=== PATIENT | female | born 1985 | race Two or more races ===

== ENCOUNTER 2021-05-27 20:34 | Emergency (ER) | payer MEDICAID, SELFPAY ==
[2021-05-27 20:41] VITALS: BP 115/68; PULSE 86; RESP 18; TEMP 36.8; O2SAT 98; BMI 28.3
--- NOTE | 2021-05-27 21:03 | ED_ITS ---
HPI - Abdominal Pain General: Chief Complaint: Abdominal Pain Stated Complaint: abdominal pain Time Seen by Provider: 05/27/21 20:55 Source: patient and family () Mode of arrival: ambulatory Limitations: no limitations History of Present Illness: Patient is a 35-year-old female who presents to ED today along with her for concerns of abdominal pains. states pain began after eating lunch this afternoon (made a sandwich at her house). They state pain has progressively worsened since onset. She states she feels incredibly nauseous but has not had any episodes of emesis. She has not had any diarrhea. Of note states approximately 2 days ago she complained of sharp pains to her right lower abdomen that seem to subside on their own. She is not running fevers. MD elicited complaint: abdominal pain Pertinent past history: none Onset (ago): hour(s) Pain Consistency: constant Location: Diffuse Severity: severe Quality: cramping and aching Radiation: none Migration to: no migration Relieving factors: nothing Associated Symptoms: Reports nausea; Denies change in bowel habits, chills, constipation, diarrhea, dysuria, fever(s), hematochezia, hematuria, hematemesis, melena and vomiting Review of Systems Const: Denies: fever(s), chills, body aches, fatigue or malaise Card: Denies: chest pain Resp: Denies: dyspnea GI: Reports: abdominal pain and nausea; Denies: vomiting, hematemesis, diarrhea, constipation, change in bowel habits, hematochezia or melena : Denies: flank pain, dysuria or hematuria Musc: Denies: neck pain, back pain, extremity pain or joint pain Skin/Breast: Denies: rash Neuro: Denies: headache(s), numbness in extremities, weakness in extremities, sensory changes or dizziness Physical Exam Const: COMMON NORMALS: no acute distress, average body habitus, patient oriented x3, no limitations, alert and well nourished GENERAL APPEARANCE: cooperative HENMT: COMMON NORMALS: normocephalic and atraumatic HEAD & SCALP: normocephalic and atraumatic Chest: COMMONS NORMALS: normal inspection of the chest and normal palpation of entire chest wall Resp: COMMON NORMALS: normal respiratory effort and clear to auscultation bilaterally AUSCULTATION: clear to auscultation bilaterally Cardio: COMMON NORMALS: regular rate and regular rhythm RATE: regular rate RHYTHM: regular rhythm GI: COMMON NORMALS: Normal to inspection, nondistended, normoactive bowel sounds present, Soft to palpation, No hepatosplenomegaly present and no masses INSPECTION: Yes normal to inspection AUSCULTATION: Yes normoactive bowel sounds PALPATION: Yes Soft to palpation, Yes Tenderness to palpation present (GI) (diffusely but moreso throughout R abdomen ) and Yes No hepatosplenomegaly present : COMMON NORMALS: Yes no CVA tenderness BLADDER/KIDNEY EXAM: Yes no CVA tenderness Back/Pelvis: COMMON NORMALS: no CVA tenderness Extremity: COMMON NORMALS: normal to inspection Neuro: BELINDA COMA SCALE: document GCS findings [place] coma scale eye openi ng: Spontaneous [place] coma scale verbal response: Orientated [place] coma scale motor response: Obey commands [place]inda coma scale total score: 15 COMMON NORMALS: patient oriented x3, moves all extremities, no focal motor deficits, no sensory deficits noted and gait normal SENSORIUM/ORIENTATION: Yes alert Skin: COMMON NORMALS: no rashes or lesions noted GENERAL SKIN EXAM: no rashes or lesions noted Course Vital Signs: Vital signs: Vital Signs Temperature 98.2 F 05/27/21 20:41 Pulse Rate 71 05/27/21 22:53 Respiratory Rate 18 05/27/21 22:53 Blood Pressure 126/66 05/27/21 22:53 Pulse Oximetry 97 05/27/21 22:53 MDM - Abdominal Pain Medical Decision Making Patient feels much better on re-examination. Her vital signs are perfect. Bl ood work overall is unremarkable. CT scan showing findings possibly reflective of viral gastroenteritis. After speaking to patient again she does tell me she ate a piece of [employer] yesterday that smelled funny. Recommend conservative treatment at home at this time. Return to ED precautions verbally given to patient and her who voiced understanding. Lab Data : 05/27/21 21:26 05/27/21 21:26 Labs/Radiology: Radiology Impressions Abdomen/Pelvis CT 05/27/21 21:14 IMPRESSION: 1. Fluid within the small bowel and colon without evidence of bowel wall thickening. This may reflect viral gastroenteritis in the appropriate clinical situation. 2. Dominant follicles in both ovaries. 3. Incidental/nonacute findings are listed in the report. COMMENTS: Consistent with the [employer]'s Incidental Findings Committee white paper (J Am Therese Radiol 2018): Any incidental renal lesion less than 1 cm or classified as too small to characterize, or any incidental cystic renal lesion characterized as simple-appearing, is likely benign. No follow-up imaging is recommended for these lesions per consensus recommendations based on imaging criteria. ADDENDUM: 05/27/21 [id number] Please note the correction to the original report: Dominant follicle in the right ovary measuring 1.4 x 1.4 cm (series 2, image 65). Laboratory Results WBC 10.4 10^3/uL (4.0-10.0) H 05/27/21 21: RBC 4.43 10^6/uL (4.1-5.3) 05/27/21 21: Hgb 13.0 g/dL (11.5-15.3) 05/27/21 21: Hct 38.1 % (37.0-47.0) 05/27/21 21: MCV 86.0 fl (81-99) 05/27/21 21: MCH 29.3 pg (28.0-34.0) 05/27/21 21: MCHC 34.1 g/dL (30.0-36.0) 05/27/21 21: RDW 17.6 % (12.1-15.1) H 05/27/21 21: Plt Count 264 10^3/cmm (130-400) 05/27/21 21: MPV 10.3 fL (7.4-10.4) 05/27/21 21: Neut % (Auto) 87.7 % 05/27/21 21: Lymph % (Auto) 6.6 % 05/27/21 21: Door % (Auto) 4.2 % 05/27/21 21: Eos % (Auto) 0.8 % 05/27/21 21: Baso % (Auto) 0.3 % 05/27/21: Neut # (Auto) 9.13 10^3/uL (1.8-7.7) H 05/27/21 21: Lymph # (Auto) 0.7 10^3/uL (0.8-4.8) L 05/27/21 21:26 [place] # (Auto) 0.4 10^3/uL (0.2-0.9) 05/27/21 21:26 Eos # (Auto) 0.1 10^3/uL (0.0-0.8) 05/27/21 21:26 Baso # (Auto) 0.0 10^3/uL (0.0-0.1) 05/27/21 21:26 Nucleated RBC % (auto) 0 % 05/27/21 21: Nucleated RBCs # 0.0 /100WBC 05/27/21 21:26 Sodium 136 mmol/L (136-145) 05/27/21 21: Potassium 3.8 mmol/L (3.5-5.1) 05/27/21 21: Chloride 103 mmol/L (98-107) 05/27/21 21: Carbon Dioxide 22 mmol/L (22-29) 05/27/21: Anion Gap 14.8 (5-19) 05/27/21 21: BUN 17 mg/dL (6-20) 05/27/21 21:26 Creatinine 0.5 mg/dL (0.5-0.9) 05/27/21 21: GFR Calculation 139.6 mL/min (90-130) H 05/27/21 21: Glucose 109 mg/dL (65-115) 05/27/21 21: Calculated Osmolality 284 mOsm/kg (285-295) L 05/27/21: Calcium 9.4 mg/dL (8.5-10.5) 05/27/21: Total Bilirubin 0.5 mg/dL (0.15-1.2) 05/27/21 21: AST 13 U/L (0-32) 05/27/21 21: ALT 10 U/L (0-33) 05/27/21 21: Alkaline Phosphatase 58 IU/L (35-105) 05/27/21 21: Total Protein 7.2 g/dL (6.6-8.7) 05/27/21 21: Albumin 4.3 g/dL (3.5-5.2) 05/27/21: Globulin 2.9 g/dL (1.3-4.6) 05/27/21:26 Lipase 28 U/L (13-60) 05/27/21 21:26 Urine Color Yellow (Yellow) 05/27/21 21: Urine Appearance Clear (CLEAR) 05/27/21 21: Urine pH 5 (5-7) 05/27/21 21: Ur Specific [place] 1.020 (1.005-1.030) 05/27/21 21:27 Urine Protein Neg (Negative) 05/27/21 21: Urine Glucose (UA) Norm (Normal) 05/27/21 21: Urine Ketones 1+ (Negative) H 05/27/21 21: Urine Blood 2+ (Negative) H 05/27/21 21: Urine Nitrate Negative (Negative) 05/27/21 21: Urine Bilirubin 1+ (Negative) H 05/27/21 21: Urine Urobilinogen Norm mg/dL (Negative) 05/27/21 21: Ur Leukocyte Esterase Negative (Negative) 05/27/21 21: Urine RBC 0-4 /hpf (0-2) H 05/27/21 21:27 Urine WBC 0-4 /hpf (0-5) H 05/27/21 21:27 Ur Squamous Epith Cells 5-10 /hpf (0-5) H 05/27/21 21: Amorphous Sediment Trace /hpf 05/27/21 21: Urine Bacteria 1+ /hpf (NONE) H 05/27/21 21: Urine Mucus 2+ /hpf 05/27/21 21:27 Urine HCG, Qual Negative (Negative) 05/27/21 21:27 Discharge Plan Discharge Patient Disposition: Home Clinical Impression: Viral gastroenteritis Condition: Stable Discharge Orders: Discharge ED (Routine); Ordered 05/27/21 Ordered By: Ping Bhardwaj Patient Instructions: Gastroenteritis (ED) Coding Level of Care Code ED Dispersion Mixer for Trena Fwd Exam Comprehensive
--- NOTE | 2021-05-27 21:14 | CTR_ITS ---
PROCEDURE INFORMATION: Exam: CT Abdomen And Pelvis With Contrast Exam date and time: 05/27/2021 9:55 PM Age: 35 years old Clinical indication: Abdominal pain; Prior surgery; Surgery type: Csection; Patient HX: C/O rlq pain with nausea. ; Additional info: R abdominal pain, nausea TECHNIQUE: Imaging protocol: Computed tomography of the abdomen and pelvis with contrast. Sagittal and coronal reformatted images were created and reviewed. Radiation optimization: All CT scans at this facility use at least one of these dose optimization techniques: automated exposure control; mA and/or kV adjustment per patient size (includes targeted exams where dose is matched to clinical indication); or iterative reconstruction. Contrast material: OMNI 300; Contrast volume: 95 ml; Contrast route: INTRAVENOUS (IV); COMPARISON: No relevant prior studies available. RADIATION DOSE METRICS: Total DLP (mGy-cm): 1392.8 FINDINGS: Lungs: Visualized lungs are clear. Pleural spaces: No pleural effusion. Heart: Visualized portions of the heart are unremarkable. Liver: The liver is unremarkable. Gallbladder and bile ducts: The gallbladder is unremarkable. No biliary ductal dilatation. Pancreas: The pancreas is unremarkable. No pancreatic ductal dilatation. Spleen: The spleen is unremarkable. Small splenule in the left upper quadrant. Adrenal glands: The right and left adrenal glands are unremarkable. Kidneys and ureters: The right kidney is unremarkable. Simple cyst in the left kidney measuring 3.4 cm. The right and left ureters are unremarkable. Stomach and bowel: Fluid within the small bowel and colon without evidence of bowel wall thickening. Appendix: The appendix is visualized and is unremarkable. No findings to suggest acute appendicitis. Intraperitoneal space: No free intraperitoneal air. No ascites. No loculated fluid collections to suggest an abscess. Vasculature: .No evidence for aortic aneurysm or aortic dissection. Hepatic veins, portal veins, splenic vein, and SMV are patent. Lymph nodes: No lymphadenopathy. Urinary bladder: The bladder is incompletely filled, which can limit evaluation. No focal abnormality in the bladder however. Reproductive: Dominant follicle in the right ovary. Dominant follicle in the left ovary measuring 1.5 x 1.2 cm (series 2, image 63). The uterus is unremarkable. Bones/joints: No acute fracture. Soft tissues: The extra-abdominal soft tissues are unremarkable. Other findings: Measurement 1.4 x 1.4 cm (series 2, image 65). CT/CT abdomen pelvis w con* [id number] IMPRESSION: 1. Fluid within the small bowel and colon without evidence of bowel wall thickening. This may reflect viral gastroenteritis in the appropriate clinical situation. 2. Dominant follicles in both ovaries. 3. Incidental/nonacute findings are listed in the report. COMMENTS: Consistent with the [employer]'s Incidental Findings Committee white paper (J Am Therese Radiol 2018): Any incidental renal lesion less than 1 cm or classified as too small to characterize, or any incidental cystic renal lesion characterized as simple-appearing, is likely benign. No follow-up imaging is recommended for these lesions per consensus recommendations based on imaging criteria.
[2021-05-27 21:36] LABS: Basophils % 0.3 %; Eosinophils # 0.1 10^3/uL (0.0-0.8); Eosinophils % 0.8 %; Hematocrit 38.1 % (37.0-47.0); Lymphocytes # 0.7 10^3/uL (0.8-4.8); Lymphocytes % 6.6 %; Mean Corpuscular HGB Conc 34.1 g/dL (30.0-36.0); Mean Corpuscular Hemoglobin 29.3 pg (28.0-34.0); Mean Platelet Volume 10.3 fL (7.4-10.4); Monocytes # 0.4 10^3/uL (0.2-0.9); Monocytes % 4.2 %; Neutrophils # 9.13 10^3/uL (1.8-7.7); Neutrophils % 87.7 %; Nucleated Red Blood Cells % 0 %; Platelet Count 264 10^3/cmm (130-400); Red Blood Count 4.43 10^6/uL (4.1-5.3); Red Cell Distribution Width 17.6 % (12.1-15.1); White Blood Count 10.4 10^3/uL (4.0-10.0)
[2021-05-27] MEDS: sodium chloride 0.9% 1,000 ML 999 ML IV (21:47)
[2021-05-27] MEDS: ondansetron 2 mg/ML SDV 2 mL 4 MG IVP (21:47)
[2021-05-27] MEDS: morphine 4 mg/mL SDV 1 mL IVP (21:47)
[2021-05-27] MEDS: iohexol 300 mg/mL 100 mL Btl IV (21:53)
[2021-05-27 21:56] LABS: Alanine Aminotransferase 10 U/L (0-33); Albumin Level 4.3 g/dL (3.5-5.2); Alkaline Phosphatase 58 IU/L (35-105); Anion Gap 14.8 (5-19); Aspartate Amino Transferase 13 U/L (0-32); Blood Urea Nitrogen 17 mg/dL (6-20); Calcium 9.4 mg/dL (8.5-10.5); Carbon Dioxide 22 mmol/L (22-29); Chloride 103 mmol/L (98-107); Globulin 2.9 g/dL (1.3-4.6); Glomerular Filtration Rate 139.6 mL/min (90-130); Glucose 109 mg/dL (65-115); Lipase 28 U/L (13-60); Osmolality Calculated 284 mOsm/kg (285-295); Potassium 3.8 mmol/L (3.5-5.1); Sodium 136 mmol/L (136-145); Total Bilirubin 0.5 mg/dL (0.15-1.2); Total Protein 7.2 g/dL (6.6-8.7)
[2021-05-27 22:02] LABS: Blood Urine 2+ (Negative); Glucose Urine UA Norm (Normal); Ketones Urine 1+ (Negative); Nitrate Urine Negative (Negative); Protein Urine Neg (Negative); Urine Appearance Clear (CLEAR); Urine Color Yellow (Yellow); pH Urine 5 (5-7)
[2021-05-27 22:03] LABS: Add Urine Microscopic? YES; Bacteria Urine 1+ /hpf; Bilirubin Urine 1+ (Negative); Leukocyte Esterase Urine Negative (Negative); RBC Urine 0-4 /hpf (0-2); Urobilinogen Urine Norm (Negative); WBC Urine 0-4 /hpf (0-5)
[2021-05-27 22:04] LABS: Add Urine Culture? No; Amorphous Sediment Urine TRACE /hpf; Mucus Urine 2+ /hpf
[2021-05-27 22:53] VITALS: BP 126/66; PULSE 71; RESP 18; O2SAT 97
[2021-05-27 23:54] VITALS: BP 126/66; PULSE 71; RESP 18; O2SAT 97
== END 2021-05-27 23:56 | disposition home or self-care (01) ==
PROVIDERS: Emergency Medicine; Emergency Provider Physician Assistant
DX: A08.4 Viral intestinal infection, unspecified (principal)
CPT/HCPCS: 74177; 80053; 81001; 81025; 83690; 85025; 96361; 96374; 96375; 99283; J2270; J2405; J7030; Q9967

== ENCOUNTER → 2022-07-27 08:54 | Outpatient (BNVA) | payer MEDICAID, SELFPAY | PROVIDERS: Visit Provider Obstetrics & Gynecology | DX: N64.4 Mastodynia (principal); N92.0 Excessive and frequent menstruation with regular cycle | CPT/HCPCS: 83001; 84146; 84443; 85025 ==

== ENCOUNTER → 2022-08-13 10:18 | Outpatient (BNVA) | payer MEDICAID, SELFPAY | PROVIDERS: Visit Provider Obstetrics & Gynecology | DX: R10.2 Pelvic and perineal pain (principal); N85.2 Hypertrophy of uterus | CPT/HCPCS: 76830 ==

== ENCOUNTER 2022-09-07 11:37 | Outpatient (CLI) | payer MEDICAID, SELFPAY ==
--- NOTE | 2022-09-07 11:48 | MM_ITS ---
WS: [id number] BILATERAL 3D TOMOSYNTHESIS DIGITAL DIAGNOSTIC MAMMOGRAPHY WITH CAD CLINICAL INFORMATION: LT BR PAIN HISTORY: LEFT breast pain and soreness COMPARISON: Baseline TECHNIQUE: Bilateral CC, MLO, and ML views. FINDINGS: Scattered fibroglandular densities bilaterally. No suspicious focal mass, asymmetry, calcifications, or architectural distortion. No evidence of andrzej gnancy. Ultrasound of the painful areas described below. ULTRASOUND BREAST BILATERAL TECHNIQUE: Ultrasound bilateral breast focused area of concern. CLINICAL INFORMATION: LT BR PAIN FINDINGS: RIGHT BREAST: Ultrasound RIGHT breast at the 12, 3 6 and 9:00 positions. Normal underlying parenchyma l tissue. No suspicious cystic or solid lesions. A few incidental dilated ducts and tiny lesions like ly cysts measuring 2 to 3 mm. No suspicious lesions to target for biopsy. LEFT BREAST: Ultrasound LEFT breast 4 quadrants. No suspicious lesions in the LEFT breast. Normal und erlying parenchymal tissue. No suspicious lesions to target for biopsy. Tiny hypoechoic lesion at the 6:00 position likely a tiny incidental cyst . MM/[place] [id number] BI-RADS: 2-Benign FOLLOW UP: Age 39 Recommend annual screening mammography age 40.
== END 2022-09-07 11:38 | disposition home or self-care (01) ==
LOC: RAD 11:41
PROVIDERS: PCP Obstetrics & Gynecology; Visit Provider Obstetrics & Gynecology
DX: N64.4 Mastodynia (principal)
CPT/HCPCS: 76642; 77062; 83001; 84146; 84443; 85025; G0279

== ENCOUNTER 2022-10-01 14:15 | Outpatient (CLI) | payer MEDICAID, SELFPAY ==
--- NOTE | 2022-10-01 14:23 | XR_ITS ---
WS: [id number] XR lumbar spine 2-3V* [id number] REASON FOR EXAM: lower back pain FINDINGS: Mild rotatory scoliosis convex right. Straightening of the normal lordosis of the lumbar spine. No significant vertebral body abnormality is noted. Intervertebral disc spaces are intact and well preserved. No spondylolysis or significant spondylolisthesis. IMPRESSION: Altered lumbar curvatures as above.
== END 2022-10-01 14:16 | disposition home or self-care (01) ==
LOC: RAD 14:19
PROVIDERS: PCP Obstetrics & Gynecology; Visit Provider Family Medicine
DX: M54.50 Low back pain, unspecified (principal); G89.29 Other chronic pain; M54.9 Dorsalgia, unspecified
CPT/HCPCS: 72100

== ENCOUNTER 2022-10-21 10:49 | Outpatient (CLI) | payer MEDICAID, SELFPAY ==
--- NOTE | 2022-10-21 11:00 | FL_ITS ---
WS: [id number] HYSTEROSALPINGOGRAM The cervical opening was cannulated by the unit receptionist. Then under fluoroscopic guidance, water-solu ble contrast was injected in a retrograde fashion. CLINICAL INFORMATION: N97.9 - Female infertility, unspecified. History of tubal ligation with reversa l COMPARISON: None. FINDINGS: The uterus fills normally, with no evidence of contour abnormality or filling defect. Partial filling of the RIGHT fallopian tube with no evidence of spillage. No significant filling of t he LEFT fallopian tube or spillage. FLUOROSCOPY TIME: 1min [id number] minutes. # of spot films: 2. IMPRESSION: No evidence of fallopian tube spillage bilaterally.
== END 2022-10-21 10:50 | disposition home or self-care (01) ==
PROVIDERS: PCP Obstetrics & Gynecology; Visit Provider Obstetrics & Gynecology
DX: N97.9 Female infertility, unspecified (principal)
CPT/HCPCS: 74740; Q9966

== ENCOUNTER 2022-12-01 07:53 | Emergency (ER) | payer MEDICAID, SELFPAY ==
[2022-12-01 07:58] VITALS: BP 137/87; PULSE 102; RESP 22; TEMP 36.6; O2SAT 100; BMI 31.4
--- NOTE | 2022-12-01 08:03 | ED_ITS ---
HPI - Abdominal Pain General: Chief Complaint: Nausea/Vomiting/Diarrhea Stated Complaint: abd pain Time Seen by Provider: 12/01/22 07:57 Source: patient Mode of arrival: ambulatory History of Present Illness: 37-year-old female presents emergency room complaining of abdominal pain localizes pain to the right upper quadrant worse after she eats specifically states after she ate spaghetti worsened. She has had some loose stools. She denies any dysuria urgency or frequency, no hematuria. No fever sweats or chills. She has previously had a no other abdominal surgeries. No history of renal stones MD elicited complaint: abdominal pain Onset (ago): day(s) Pain Consistency: intermittent Location: RUQ Severity: moderate Quality: cramping Radiation: back Exacerbating factors: eating Relieving factors: nothing Associated Symptoms: Reports bloating, GI cramping, nausea, poor appetite and vomiting; Denies anorexia, belching, change in bowel habits, change in stool character, chills, coffee ground emesis, constipation, diarrhea, dyspepsia, dysuria, excessive flatus, fever(s), heartburn, hematochezia, hematuria, hematemesis, fecal incontinence, loose stools, melena and syncope Review of Systems Const: Denies: fever(s), chills, fatigue or malaise Card: Denies: chest pain or syncope Resp: Denies: dyspnea GI: Reports: abdominal pain, nausea, vomiting, bloating and GI cramping; Denies: hematemesis, coffee ground emesis, heartburn, diarrhea, constipation, belching, excessive flatus, fecal incontinence, change in bowel habits, change in stool character, hematochezia or melena : Denies: flank pain, dysuria, urinary frequency, urinary urgency or hematuria Musc: Reports: back pain; Denies: neck pain Skin/Breast: Denies: rash PFSH ED PFSH: Surgical History H/O section x3 No pertinent past surgical history Family History Denies family history of Colon cancer Ovarian cancer Diabetes Heart disease Hyperlipidemia Breast cancer Hypertension Uterine cancer Thyroid condition Stroke Social History Smoking and tobacco status: current every day smoker cigarettes Packs smoked per day: 0.5 Alcohol intake: never Substance/Drug Use: never Physical Exam Const: GENERAL APPEARANCE: cooperative and comfortable ORIENTATION/CONSCIOUSNESS: Yes awake, Yes oriented to person, Yes oriented to place and Yes oriented to time HENMT: COMMON NORMALS: normocephalic, atraumatic and hearing grossly normal bilaterally HEAD & SCALP: normocephalic and atraumatic Resp: COMMON NORMALS: normal respiratory effort, No retractions, No use of accessory muscles and clear to auscultation bilaterally AUSCULTATION: clear to auscultation bilaterally Cardio: COMMON NORMALS: regular rate, regular rhythm and No murmurs present (Cardio) RATE: regular rate RHYTHM: regular rhythm GI: COMMON NORMALS: No hepatosplenomegaly present AUSCULTATION: Yes normoactive bowel sounds PALPATION: Yes Tenderness to palpation present (GI) Details: RUQ, No Guarding due to palpation present (GI) and Yes No hepato splenomegaly present Extremity: COMMON NORMALS: normal to inspection, capillary refill normal, no clubbing, cyanosis or edema, no calf tenderness and no pedal edema Neuro: SENSORIUM/ORIENTATION: Yes oriented to person, Yes oriented to place and Yes oriented to time Skin: COMMON NORMALS: no rashes or lesions noted GENERAL SKIN EXAM: no rashes or lesions noted Course Vital Signs: Vital signs: Vital Signs Temperature 97.8 F 12/01/22 07:58 Pulse Rate 102 H 12/01/22 07:58 Respiratory Rate 22 H 12/01/22 07:58 Blood Pressure 137/87 12/01/22 07:58 Pulse Oximetry 100 12/01/22 07:58 MDM - Abdominal Pain Medical Decision Making Labs and imaging reviewed. She does have some leukocytosis gallbladder ultrasound and CT are negative. No sign of acute cystitis her urine shows more squamous cells and white cells. She is improved after IV fluids discharged home on clear liquid diet antiemetics as needed follow-up as needed. Clear liquid diet 24 to 48 hours Differential Diagnosis Likely abdominal pain, acute appendicitis, calculus of kidney, gastroenteritis, pancreatitis and small bowel obstruction Medical Records I reviewed the patient's medical records. Lab Data I reviewed the patient's lab results. 12/01/22 08:12 12/01/22 08:12 Labs/Radiology: Laboratory Results WBC 15.62 10^3/uL (3.29-11.43) H 12/01/22 08:12 RBC 4.75 10^6/uL (3.85-5.65) 12/01/22 08:12 Hgb 13.50 g/dL (11.27-16.99) 12/01/22 08:12 Hct 41.0 % (36-47) 12/01/22 08:12 MCV 86.3 fl (85-98) 12/01/22 08:12 MCH 28.4 pg (27-33) 12/01/22 08:12 MCHC 32.9 g/dL (30-55) 12/01/22 08:12 RDW 14.4 % (12.1-15.1) 12/01/22 08:12 Plt Count 360 10^3/cmm (157-399) 12/01/22 08:12 MPV 10.0 fL (7.4-10.4) 12/01/22 08:12 Neut % (Auto) 80.5 % 12/01/22 08:12 Lymph % (Auto) 11.4 % 12/01/22 08:12 [place] % (Auto) 6.0 % 12/01/22 08:12 Eos % (Auto) 1.0 % 12/01/22 08:12 Baso % (Auto) 0.3 % 12/01/22 08:12 Neut # (Auto) 12.57 10^3/uL (1.8-7.7) H 12/01/22 08:12 Lymph # (Auto) 1.8 10^3/uL (0.8-4.8) 12/01/22 08:12 [place] # (Auto) 0.9 10^3/uL (0.2-0.9) 12/01/22 08:12 Eos # (Auto) 0.2 10^3/uL (0.0-0.8) 12/01/22 08:12 Baso # (Auto) 0.1 10^3/uL (0.0-0.1) 12/01/22 08:12 Nucleated RBC % (auto) 0 % 12/01/22 08:12 Nucleated RBCs # 0.0 /100WBC 12/01/22 08:12 Sodium 140 mmol/L (136-145) 12/01/22 08:12 Potassium 3.8 mmol/L (3.5-5.1) 12/01/22 08:12 Chloride 104 mmol/L (98-107) 12/01/22 08:12 Carbon Dioxide 24 mmol/L (22-29) 12/01/22 08:12 Anion Gap 15.8 (5-19) 12/01/22 08:12 BUN 15 mg/dL (6-20) 12/01/22 08:12 Creatinine 0.7 mg/dL (0.5-0.9) 12/01/22 08:12 GFR Calculation 93.6 mL/min (90-130) 12/01/22 08:12 Glucose 141 mg/dL (65-115) H 12/01/22 08:12 Calculated Osmolality 293 mOsm/kg (285-295) 12/01/22 08:12 Calcium 9.2 mg/dL (8.5-10.5) 12/01/22 08:12 Total Bilirubin 0.6 mg/dL (0.15-1.2) 12/01/22 08:12 AST 12 U/L (0-32) 12/01/22 08:12 ALT 11 U/L (0-33) 12/01/22 08:12 Alkaline Phosphatase 72 U/L (35-105) 12/01/22 08:12 Total Protein 7.5 g/dL (6.6-8.7) 12/01/22 08:12 Albumin 4.4 g/dL (3.5-5.2) 12/01/22 08:12 Globulin 3.1 g/dL (1.3-4.6) 12/01/22 08:12 Lipase 33 U/L (13-60) 12/01/22 08:12 HCG, Qual Negative (Negative) 12/01/22 08:12 Urine Color Yellow (Yellow) 12/01/22 08:25 Urine Appearance Cloudy (CLEAR) A 12/01/22 08:25 Urine pH 7 (5-7) 12/01/22 08:25 Ur Specific [place] 1.010 (1.005-1.030) 12/01/22 08:25 Urine Protein Trace (Negative) 12/01/22 08:25 Urine Glucose (UA) Norm (Normal) 12/01/22 08:25 Urine Ketones 1+ (Negative) H 12/01/22 08:25 Urine Blood 3+ (Negative) H 12/01/22 08:25 Urine Nitrate Negative (Negative) 12/01/22 08:25 Urine Bilirubin 1+ (Negative) H 12/01/22 08:25 Urine Urobilinogen 4 mg/dL (Negative) H 12/01/22 08:25 Ur Leukocyte Esterase Trace (Negative) H 12/01/22 08:25 Urine RBC 0-4 /hpf (0-2) H 12/01/22 08:25 Urine WBC 5-10 /hpf (0-5) H 12/01/22 08:25 Ur Squamous Epith Cells 10-15 /hpf (0-5) H 12/01/22 08:25 Amorphous Sediment Not Reportable 12/01/22 08:25 Urine Bacteria 3+ /hpf (NONE) H 12/01/22 08:25 Urine Mucus 2+ /hpf 12/01/22 08:25 All radiology interpretation(s) finalized by discharge Discharge Plan Discharge Patient Disposition: Home Clinical Impression: Gastroenteritis Condition: Stable Prescriptions: New ondansetron HCl 4 mg tablet 4 mg PO Q6H PRN (Reason: nausea and vomiting) Qty: 20 0RF No Action ibuprofen 800 mg tablet 800 mg PO TID Qty: 90 3RF Discharge Orders: Discharge ED (Routine); Ordered 12/01/22 Ordered By: Dante Olivarez Referrals: Derick Pompa MD [Primary Care Provider] - Discharge Diet: Clear Liquid Discharge Activity: Increase activity as tolerated Patient Instructions: Gastroenteritis (ED), Opioid Safety, Pain Management Activity Restrictions/Additional Instructions: Clear liquid diet 24 to 48 hours advance as tolerated Stand Alone Forms: Work/School Release Coding Level of Care Code ED Assistant Women'S Rowing Coach for Trena Roy
--- NOTE | 2022-12-01 08:14 | US_ITS ---
WS: [email or web address] RIGHT UPPER QUADRANT ULTRASOUND HISTORY: RUQ abd pain COMPARISON: None available. Liver: 16.8 cm in length. Normal size liver and echogenicity. No bile duct dilatation or mass. Portal Vein: Normal hepatopetal flow with monophasic waveform. Gallbladder: Normally distended gallbladder with no stones or wall thickening. CBD: 0.3 cm Pancreas: Normal size and echogenicity. Right kidney: 11.2 cm in length. Normal size and echogenicity. No hydronephrosis or mass. Aorta and IVC: Unremarkable abdominal aorta and IVC. No ascites. IMPRESSION: Normal RIGHT upper quadrant ultrasound.
[2022-12-01] MEDS: ondansetron 2 mg/ML SDV 2 mL 4 MG IVP (08:20)
[2022-12-01 08:21] LABS: Basophils # 0.1 10^3/uL (0.0-0.1); Basophils % 0.3 %; Eosinophils # 0.2 10^3/uL (0.0-0.8); Lymphocytes # 1.8 10^3/uL (0.8-4.8); Lymphocytes % 11.4 %; Mean Corpuscular HGB Conc 32.9 g/dL (30-55); Mean Corpuscular Hemoglobin 28.4 pg (27-33); Mean Corpuscular Volume 86.3 fl (85-98); Monocytes # 0.9 10^3/uL (0.2-0.9); Neutrophils # 12.57 10^3/uL (1.8-7.7); Neutrophils % 80.5 %; Nucleated Red Blood Cells % 0 %; Platelet Count 360 10^3/cmm (157-399); Red Blood Count 4.75 10^6/uL (3.85-5.65); Red Cell Distribution Width 14.4 % (12.1-15.1); White Blood Count 15.62 10^3/uL (3.29-11.43)
[2022-12-01] MEDS: sodium chloride 0.9% 1,000 ML 999 ML IV (08:21)
[2022-12-01 08:37] LABS: HCG, Serum Qual Negative (Negative)
[2022-12-01 08:39] LABS: Alanine Aminotransferase 11 U/L (0-33); Albumin Level 4.4 g/dL (3.5-5.2); Alkaline Phosphatase 72 U/L (35-105); Anion Gap 15.8 (5-19); Aspartate Amino Transferase 12 U/L (0-32); Blood Urea Nitrogen 15 mg/dL (6-20); Calcium 9.2 mg/dL (8.5-10.5); Carbon Dioxide 24 mmol/L (22-29); Chloride 104 mmol/L (98-107); Globulin 3.1 g/dL (1.3-4.6); Glomerular Filtration Rate 93.6 mL/min (90-130); Glucose 141 mg/dL (65-115); Osmolality Calculated 293 mOsm/kg (285-295); Potassium 3.8 mmol/L (3.5-5.1); Sodium 140 mmol/L (136-145); Total Bilirubin 0.6 mg/dL (0.15-1.2); Total Protein 7.5 g/dL (6.6-8.7)
[2022-12-01 08:46] LABS: Lipase 33 U/L (13-60)
[2022-12-01 08:51] LABS: Glucose Urine UA Norm (Normal); Protein Urine Trace (Negative); Urine Appearance Cloudy (CLEAR); Urine Color Yellow (Yellow); pH Urine 7 (5-7)
[2022-12-01 08:52] LABS: Add Urine Culture? No; Add Urine Microscopic? YES; Bacteria Urine 3+ /hpf; Bilirubin Urine 1+ (Negative); Blood Urine 3+ (Negative); Ketones Urine 1+ (Negative); Leukocyte Esterase Urine Trace (Negative); Mucus Urine 2+ /hpf; Nitrate Urine Negative (Negative); RBC Urine 0-4 /hpf (0-2); Urobilinogen Urine 4 mg/dL (Negative)
--- NOTE | 2022-12-01 09:09 | CT_ITS ---
WS: [id number] CT ABDOMEN AND PELVIS NONCONTRAST HISTORY: Abdominal pain TECHNIQUE: Imaging performed through the abdomen and pelvis. Coronal and sagittal reformats are submi tted. All CT scans at [facility] use at least one of these dose optimization techniques: auto mated exposure control; mA and/or kV adjustment per patient size (includes targeted exams where dose is matched to clinical indication); or iterative reconstruction. DLP: 760.23 mGy.cm COMPARISON: 05/27/2021 Lower thorax: Lung bases are clear. Visualized heart is normal. No hiatal hernia. Liver: Normal size liver. No mass or bile duct dilatation. Gallbladder: Normal gallbladder. No pericholecystic fluid or cholelithiasis. No gallbladder wall thic kening. Pancreas: Normal size and attenuation. Normal pancreatic duct. No pancreatitis or mass. Spleen: Normal. Adrenal glands: Normal. No mass. Right kidney: Normal size kidney with no mass or hydronephrosis. Left kidney: Normal size kidney. LEFT renal cyst lower pole 3.0 x 3.0 cm. No obstruction. Aorta: Normal abdominal aorta, no aneurysm or atherosclerosis. No free fluid, intraperitoneal air or significant lymphadenopathy. GI tract: Normal noncontrast imaging of the stomach, small bowel and colon. No obstruction or wall th ickening. Normal appendix. Abdominal wall: Negative. No hernia. Pelvis: Negative uterus and ovaries. No pelvic mass. Osseous structures: Unremarkable. IMPRESSION: 1. No acute abdominal or pelvic abnormalities identified on this unenhanced exam. 2. Normal appendix. 3. No renal obstruction 4. LEFT renal cyst 3.0 x 3.0 cm. 5. No free fluid or adenopathy.
[2022-12-01] MEDS: ketorolac 30 mg/mL INJ IVP (09:59)
== END 2022-12-01 10:10 | disposition home or self-care (01) ==
PROVIDERS: Emergency Provider Family Medicine; PCP Family Medicine
DX: K52.9 Noninfective gastroenteritis and colitis, unspecified (principal); F17.210 Nicotine dependence, cigarettes, uncomplicated
CPT/HCPCS: 74176; 76705; 80053; 81001; 83690; 84703; 85025; 96361; 96374; 96375; 99285; J1885; J2405; J7030

== ENCOUNTER → 2024-09-20 16:28 | Outpatient (BNVA) | payer MEDICAID, SELFPAY | PROVIDERS: PCP Family Medicine; Visit Provider Obstetrics & Gynecology | DX: N94.6 Dysmenorrhea, unspecified (principal) | CPT/HCPCS: 83036; 84146; 84443; 85025 ==

== ENCOUNTER → 2024-10-05 13:33 | Outpatient (BNVA) | payer MEDICAID, SELFPAY | PROVIDERS: PCP Family Medicine; Visit Provider Obstetrics & Gynecology | DX: N92.0 Excessive and frequent menstruation with regular cycle (principal); N94.6 Dysmenorrhea, unspecified | CPT/HCPCS: 76830 ==

== ENCOUNTER → 2024-11-20 16:44 | Outpatient (BNVA) | payer MEDICAID, SELFPAY | PROVIDERS: PCP Family Medicine; Visit Provider Obstetrics & Gynecology | DX: Z01.419 Encounter for gynecological examination (general) (routine) without abnormal findings (principal) | CPT/HCPCS: 87624 ==

== ENCOUNTER → 2024-12-11 16:55 | Outpatient (BNVA) | payer MEDICAID, SELFPAY | PROVIDERS: PCP Family Medicine; Visit Provider Obstetrics & Gynecology | DX: R87.619 Unspecified abnormal cytological findings in specimens from cervix uteri (principal) | CPT/HCPCS: 88305; 88342 ==

== ENCOUNTER 2024-12-27 13:37 | Outpatient (CLI) | payer MEDICAID, SELFPAY ==
--- NOTE | 2024-12-27 13:42 | XR_ITS ---
WS: [id number] Right shoulder, 2 views, 12/27/2024 Clinical Data: Shoulder pain Comparison: None. Findings: No fractures or dislocations are seen. The AC joint is normal. The adjacent right clavicle, right scapula and ribs are normal. The soft tissues are unremarkable. XR/XR shoulder RT min 2V* [id number] Impression: Negative right shoulder.
== END 2024-12-27 13:38 | disposition home or self-care (01) ==
LOC: RAD 13:37
PROVIDERS: PCP Family Medicine; Visit Provider Family Medicine
DX: M75.41 Impingement syndrome of right shoulder (principal)
CPT/HCPCS: 73030

== ENCOUNTER 2024-12-29 22:14 | Emergency (ER) | payer MEDICAID, SELFPAY ==
[2024-12-29 23:17] VITALS: BP 142/60; PULSE 79; RESP 20; TEMP 36.8; O2SAT 98; BMI 30.9
--- NOTE | 2024-12-30 00:25 | W.ED.DENTAL ---
HPI - Dental/Oral General: Chief complaint: Upper Respiratory Infection Stated complaint: R side mouth pain spread into head and neck fever Time Seen by Provider: 12/29/24 23:46 History of Present Illness: Patient is a 39-year-old female who presents today accompanied by her due to right-sided pain that began 4 days ago. The pain initially started in the throat area and has progressively spread upward to involve the mouth, face, head, and now extends to the right shoulder. The patient reports that the pain is worse at night. She has been experiencing some difficulty moving her neck and reports pain in her teeth on the right side. The reports that the patient has had intermittent tooth pain previously. The patient has had mild fever initially, but this has resolved. The patient has not been sleeping well due to the pain. The patient has taken some amoxicillin that the had, with minimal improvement. The patient has a dental appointment scheduled for next Wednesday. Related Data Previous Rx's ?Medication ?Instructions ?Recorded meloxicam 15 mg tablet 15 mg PO DAILY #30 tabs 12/27/24 amoxicillin 875 mg-potassium 1 tab PO Q12H #20 tabs 12/30/24 clavulanate 125 mg tablet hydrocodone 5 mg-acetaminophen 325 1 tab PO Q8H PRN pain #7 tabs 12/30/24 mg tablet Allergies Allergy/AdvReac Type Severity Reaction Status Date / Time No Known Allergies Allergy Verified 12/27/24 12:50 [facility] PFSH: Medical History History of female sterilization Smoker unmotivated to quit Surgical History No pertinent past surgical history H/O section x3 Family History Denies family history of Colon cancer Ovarian cancer Diabetes Heart disease Hyperlipidemia Breast cancer Hypertension Uterine cancer Thyroid disease Stroke Social History (Updated 12/27/24 @ 12:55 by Ryne Mcdonnell LPN) Smoking and tobacco/nicotine status: current every day tobacco/nicotine user cigarettes Packs smoked per day: 0.5 Alcohol intake: current Alcohol intake frequency: holidays/special occasions only Substance/Drug Use: never Physical Exam HENMT: TEETH & GINGIVA: Yes abnormal tooth and associated gingiva, Yes caries and Yes gingiva abnormal Lymph: LYMPHATIC: no lymphadenopathy noted Chest: COMMONS NORMALS: normal inspection of the chest, normal palpation of entire chest wall and normal palpation of the breasts CHEST: Yes abnormal inspection of the chest BREAST/AXILLA PALPATION: Yes normal palpation of the breasts Resp: COMMON NORMALS: normal respiratory effort, No retractions, No use of accessory muscles and clear to auscultation bilaterally AUSCULTATION: clear to auscultation bilaterally Cardio: COMMON NORMALS: regular rate and regular rhythm RATE: regular rate RHYTHM: regular rhythm Course Vital Signs: Vital signs: Vital Signs Temperature 98.2 F 12/29/24 23:17 Pulse Rate 79 12/29/24 23:17 Respiratory Rate 20 H 12/29/24 23:17 Blood Pressure 142/60 12/29/24 23:17 Pulse Oximetry 98 12/29/24 23:17 [facility] - Dental/Oral Medical Decision Making Apparent dental abscess with lymphadenitis on the right anterior cervical chain and suprascapular chain. Single dose of steroid for pain and swelling. Short course pain medication. Antibiotics. Dental follow-up stable for discharge. No radiology studies performed this visit Discharge Plan Discharge Patient Disposition: Home Clinical Impression: Abscess, dental, Acute cervical lymphadenitis Condition: Stable Prescriptions: New hydrocodone-acetaminophen 5-325 mg tablet 1 tab PO Q8H PRN (Reason: pain) Qty: 7 0RF amoxicillin-pot clavulanate 875-125 mg tablet 1 tab PO Q12H Qty: 20 0RF No Action meloxicam 15 mg tablet 15 mg PO DAILY Qty: 30 0RF Discharge Orders: Discharge ED (Routine); Ordered 12/30/24 Ordered By: Rafael Hartley Referrals: Derick Pompa MD [Primary Care Provider, Family Practice] Patient Instructions: Dental Abscess (ED), Adenitis (ED), Opioid Safety, Pain Management, Patient Portal & Rashid Instructions Activity Restrictions/Additional Instructions: Follow-up with your dentist as scheduled. Return for any problems. Print Language: Maori Coding Level of Care Code ED [employer] for Trena Roy
[2024-12-30 00:49] VITALS: BP 107/57; PULSE 73; O2SAT 96
[2024-12-30 00:51] VITALS: RESP 16
[2024-12-30] MEDS: oxyCODONE-APAP 5-325 mg Tablet 2 TAB PO (00:51)
[2024-12-30 00:57] VITALS: BP 107/57; PULSE 67; O2SAT 95
[2024-12-30 00:59] VITALS: BP 106/55
== END 2024-12-30 01:00 | disposition home or self-care (01) ==
PROVIDERS: Emergency Provider Emergency Medicine; PCP Family Medicine
DX: K04.7 Periapical abscess without sinus (principal); L04.0 Acute lymphadenitis of face, head and neck; F17.210 Nicotine dependence, cigarettes, uncomplicated
CPT/HCPCS: 99283; J8540; J9999